=== PATIENT | male | born 1955 | race African-American/Black ===

== ENCOUNTER → 2017-06-09 | Outpatient (CLI) | payer MEDICARE, OTHER ==
--- NOTE | 2017-06-11 10:31 | XCELERA REPORT ---
[address] [address] Lower Extremity Arterial Evaluation Name: PAUL REED Age: 61 yrs Gender: Male : 1955 Patient Status: Outpatient Patient Location: Study Date: 06/09/2017 11:16 AM Procedure: A color flow and duplex scan of the lower extremity arteries was performed bilaterally with velocity and waveform anaylsis. Ankle brachial indicies performed. Reason For Study: PVD Ordering Physician: SANKET ARCE Performed By: Margo Raines Measurements and Calculations Right Left CUSTODIAN MANAGER PSV 121.8 112.4 cm/sec Prox PFA PSV -79.2 62.9 cm/sec Prox SFA PSV -119.4 91.5 cm/sec Mid SFA PSV -91.8 -73.9 cm/sec Dist SFA PSV -80.5 -82.2 cm/sec Prox Pop A PSV 77.7 65.6 cm/sec Dist CALVIN PSV 73.9 68.8 cm/sec Dist ROOM COOLER INSTALLER PSV 68.9 58.9 cm/sec Juan Pablo Pedis PSV 50.7 67.3 cm/sec Right Side Arterial Evaluation Normal velocity and triphasic waveforms noted from the Common Femoral artery to the infregeniculate vessels. 0 % stenosis noted. Ankle Brachial index is 1.14. Left Side Arterial Evaluation Normal velocity and triphasic waveforms noted from the Common Femoral artery to the infregeniculate vessels. 0 % stenosis noted. Ankle Brachial index is 1.14. Interpretation Summary No hemodynamically significant lesions in the bilateral lower extremities, on duplex imaging, at rest. : SANKET ARCE > Byron Leija
== END ==
LOC: SP 10:47
PROVIDERS: ATTEND Internal Medicine Cardiovascular Disease
DX: I73.9 Peripheral vascular disease, unspecified (principal)
CPT/HCPCS: 93925